=== PATIENT | male | born 2000 | race Caucasian/White ===

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

== ENCOUNTER 2018-06-22 14:54 | Emergency (ER) | payer OTHER, MEDICAID ==
[~2018-06-22] VITALS: Ht 188 cm; Wt 124.7 kg
[2018-06-22 15:02] VITALS: BP_SYST 149
--- NOTE | 2018-06-22 15:12 | NUR ---
Patient to ER bed 4 to gown for evaluation. Side rails up. Report given to Dev JOAQUIN.
--- NOTE | 2018-06-22 15:15 | NUR ---
BAYRON HERNANDEZ at bedside examining patient.
--- NOTE | 2018-06-22 15:20 | NUR ---
PT PRESENTS TO ED C/O LOW BACK PAIN S/P LIFT HEAVY OBJECT. PT H/O CHRONIC BACK PAIN
[2018-06-22] MEDS ORDERED: KETOROLAC TROMETHAMINE 60 MG/2 ML VIAL IM ONE (15:30)
[2018-06-22 16:28] VITALS: BP_SYST 144
--- NOTE | 2018-06-22 16:30 | NUR ---
Patient given written and verbal discharge instructions and verbalizes understanding. ER MD discussed with patient the results and treatment provided. Patient in stable condition. ID arm band removed. Rx of Flexeryl and Motrin given. Patient educated on pain management and to follow up with PMD. Pain Scale 3/10 tolerable for patient . Opportunity for questions provided and answered. Medication side effect fact sheet provided.
== END 2018-06-22 16:28 | disposition home or self-care (01) ==
LOC: SED 14:54
DX: S39.012A Strain of muscle, fascia and tendon of lower back, initial encounter (principal); Z88.1 Allergy status to other antibiotic agents; Z88.8 Allergy status to other drugs, medicaments and biological substances; W22.8XXA Striking against or struck by other objects, initial encounter; Y93.89 Activity, other specified; Y92.89 Other specified places as the place of occurrence of the external cause; Y99.8 Other external cause status
CPT/HCPCS: 96372; 99283; J1885

== ENCOUNTER 2018-12-15 19:44 | Emergency (ER) | payer OTHER, MEDICAID ==
[~2018-12-15] VITALS: Ht 188 cm; Wt 120.2 kg
[2018-12-15 19:50] VITALS: BP_SYST 140
[2018-12-15] MEDS ORDERED: MUPIROCIN 2% TOPICAL OINTMENT 22 GM TP ONE (20:30)
[2018-12-15 20:56] VITALS: BP_SYST 140
[2018-12-15] MEDS ORDERED: BACITRACIN 1 GM OINT TP ONE (21:01)
== END 2018-12-15 20:56 | disposition home or self-care (01) ==
LOC: SED 19:44
DX: S50.861A Insect bite (nonvenomous) of right forearm, initial encounter (principal); Z88.1 Allergy status to other antibiotic agents; Z88.8 Allergy status to other drugs, medicaments and biological substances; W57.XXXA Bitten or stung by nonvenomous insect and other nonvenomous arthropods, initial encounter; Y93.89 Activity, other specified; Y92.89 Other specified places as the place of occurrence of the external cause; Y99.8 Other external cause status
CPT/HCPCS: 99283

== ENCOUNTER 2019-10-18 22:07 | Emergency (ER) | payer MEDICAID, OTHER ==
[~2019-10-18] VITALS: Ht 180.3 cm; Wt 104.3 kg
[2019-10-18 22:20] VITALS: BP_SYST 133
--- NOTE | 2019-10-18 22:30 | NUR ---
Pt taken to CT from waiting room
--- NOTE | 2019-10-18 23:15 | NUR ---
ER at bedside examining patient.
--- NOTE | 2019-10-18 23:15 | NUR ---
Patient to ER bed 3 to gown for evaluation. Side rails up. Report given to JEMAL Finnegan
[2019-10-18 23:34] LABS: HEMOGLOBIN 13.9 g/dL (14.0-18.0); PLATELET COUNT (AUTO) 179 K/uL (130-430)
--- NOTE | 2019-10-18 23:35 | NUR ---
Pt presents to the ER c/o right lower jaw pain. Denies trauma to the area. Denies taking any pain medication. Rates pain 10/10.Denies fever, chills, nausea, vomiting, diarrhea, chest pain, shortness of breath. Denies any traumas.
[2019-10-18 23:39] LABS: HEMATOCRIT 40.9 % (36-54); MEAN CORPUSCULAR HEMOGLOBIN 29 pg (27-31); MEAN CORPUSCULAR HGB CONC 34 % (32-36); MEAN CORPUSCULAR VOLUME 85 fL (79.0-98.0); RED CELL DISTRIBUTION WIDTH 13.3 % (9.0-15.0); WHITE BLOOD COUNT (AUTO) 7.3 K/uL (4.8-10.8)
[2019-10-18 23:42] LABS: CREATININE 1.07 mg/dL (0.55-1.30); POTASSIUM 3.4 mmol/L (3.5-5.1)
[2019-10-18 23:47] LABS: ALBUMIN 3.9 g/dL (3.4-4.8); TOTAL BILIRUBIN 0.7 mg/dL (0.0-1.0)
[2019-10-19 00:30] LABS: ATYPICAL LYMPHOCYTES % 2 % (0-0); BAND % (MANUAL) 0 % (0-6); BASOPHILS % (MANUAL) 0 % (0-2); EOSINOPHILS % (MANUAL) 0 % (0-7); LYMPHOCYTES % (MANUAL) 33 % (20-46); MONOCYTES % (MANUAL) 27 % (0-11)
[2019-10-19] MEDS ORDERED: ACETAMINOPHEN/CODEINE 300 MG-30 MG TABLET PO ONE ×2 (01:00)
[2019-10-19 01:20] VITALS: BP_SYST 133
[2019-10-19] MEDS ORDERED: ACETAMINOPHEN/CODEINE 300 MG-30 MG TABLET ONE (01:20)
--- NOTE | 2019-10-19 01:20 | NUR ---
Patient given written and verbal discharge instructions and verbalizes understanding. ER MD discussed with patient the results and treatment provided. Patient in stable condition. ID arm band removed. IV catheter removed intact and dressing applied, no active bleeding. Rx of Augmentin and Tylenol with Codeine given. Patient educated on pain management and to follow up with PMD. Pain Scale 10/10. Pt given pain medication before discharge Opportunity for questions provided and answered. Medication side effect fact sheet provided.
--- NOTE | 2019-10-19 01:41 | NUR ---
Pt Given Tylenol #3 @ 0120Hrs by Sivan Davies RN. Mistakenly Charted as refused/non-admin. Medication will be scanned Via [employer] and updated.
== END 2019-10-19 01:20 | disposition home or self-care (01) ==
LOC: SED 22:07
DX: R68.84 Jaw pain (principal); R59.0 Localized enlarged lymph nodes; Z88.1 Allergy status to other antibiotic agents; Z88.8 Allergy status to other drugs, medicaments and biological substances; Z86.14 Personal history of Methicillin resistant Staphylococcus aureus infection
CPT/HCPCS: 36415; 70486-TC; 80053; 85007; 85027; 99284

== ENCOUNTER 2022-08-04 21:50 | Emergency (ER) | payer SELFPAY ==
[~2022-08-04] VITALS: Ht 188 cm; Wt 111.1 kg
[2022-08-04 22:00] VITALS: BP_SYST 138
[2022-08-04] MEDS ORDERED: CLIN-142 PO (23:01)
[2022-08-04] MEDS ORDERED: DEXAMETHASONE SOD PHOSPHATE 10 MG/ML VIAL IM ONE (23:15)
[2022-08-05 00:50] VITALS: BP_SYST 135
== END 2022-08-05 00:58 | disposition home or self-care (01) ==
LOC: SED 21:50
DX: J03.90 Acute tonsillitis, unspecified (principal); R59.1 Generalized enlarged lymph nodes; R05.9 Cough, unspecified; Z88.1 Allergy status to other antibiotic agents; Z88.8 Allergy status to other drugs, medicaments and biological substances; Z79.899 Other long term (current) drug therapy
CPT/HCPCS: 99283; 96372; J1100

== ENCOUNTER 2023-01-14 16:55 | Emergency (ER) | payer SELFPAY ==
[~2023-01-14] VITALS: Ht 188 cm; Wt 117.9 kg
[~2023-01-14 16:55] MED LIST: CLIN-142 PO
[2023-01-14 17:04] VITALS: BP_SYST 118; PULSE 88; RESP 18; TEMP 98.3; O2SAT 95
[2023-01-14 19:14] VITALS: BP_SYST 118; PULSE 88; RESP 18; TEMP 98.3; O2SAT 95
== END 2023-01-14 19:14 | disposition home or self-care (01) ==
LOC: SED 16:55
DX: K05.10 Chronic gingivitis, plaque induced (principal); F12.90 Cannabis use, unspecified, uncomplicated; Z88.1 Allergy status to other antibiotic agents; Z88.8 Allergy status to other drugs, medicaments and biological substances; Z79.899 Other long term (current) drug therapy
CPT/HCPCS: 99281